=== PATIENT | male | born 1940 | race Hispanic/Latino ===

== ENCOUNTER 2018-06-18 08:04 | Emergency (ER) | payer MEDICARE, OTHER ==
[2018-06-18] MEDS ORDERED: LIDOCAINE VISCOUS 2% PO ONE (09:37)
--- NOTE | 2018-06-18 09:42 | Emergency Department Report ---
ED ENT HPI - General Chief complaint: Sore Throat Stated complaint: SORE THROAT Source: patient Mode of arrival: Ambulatory Limitations: No Limitations - History of Present Illness Initial comments: This is a 78-year-old male who presents with sore throat and difficulty swallowing for 2 day. Has medical history of diabetes type 2 and hypertension. Patient states he was rushing to an appointment at the [facility] yesterday morning and ate some oatmeal which he thinks burned throat. Patient states he is having difficulty swallowing since. He was unable to eat dinner last night and only able to take a few bites of oatmeal this morning. Patient denies past medical history of difficulty swallowing. Patient denies fever/chills, cough, shortness of breath, hoarseness, drooling, and chest pain. MD complaint: sore throat, difficulty swallowing Onset/Timin -: days(s) Location: throat Severity: moderate Severity scale (0 -10): 5 Quality: aching Consistency: intermittent Worsens with: swallowing Associated Symptoms: pain with swallowing, sore throat - Related Data Home Medications Medication Instructions Recorded Confirmed Last Taken Aspirin [Baby Aspirin] 162 mg PO QDAY 03/23/14 03/23/14 03/23/14 Clopidogrel Bisulfate [Plavix] 75 mg PO QDAY 03/23/14 03/23/14 03/23/14 Metformin HCl [Glucophage] 1,000 mg PO BID 03/23/14 03/23/14 03/23/14 Metoprolol [Lopressor] 75 mg PO Q8HR 03/23/14 03/23/14 03/23/14 oxyCODONE /ACETAMINOPHEN [Percocet 2 tab PO Q4HR PRN 03/23/14 03/23/14 Unknown 5/325] Previous Rx's Medication Instructions Recorded Last Taken Type oxyCODONE /ACETAMINOPHEN [Percocet 1 tab PO Q6HR PRN #14 tablet 03/23/14 Unknown Rx 5/325 mg] Allergies Allergy/AdvReac Type Severity Reaction Status Date / Time No Known Allergies Allergy Verified 06/18/18 08:24 ED Dental HPI - General Chief complaint: Sore Throat Stated complaint: SORE THROAT Source: patient Mode of arrival: Ambulatory Limitations: No Limitations - Related Data Home Medications Medication Instructions Recorded Confirmed Last Taken Aspirin [Baby Aspirin] 162 mg PO QDAY 03/23/14 03/23/14 03/23/14 Clopidogrel Bisulfate [Plavix] 75 mg PO QDAY 03/23/14 03/23/14 03/23/14 Metformin HCl [Glucophage] 1,000 mg PO BID 03/23/14 03/23/14 03/23/14 Metoprolol [Lopressor] 75 mg PO Q8HR 03/23/14 03/23/14 03/23/14 oxyCODONE /ACETAMINOPHEN [Percocet 2 tab PO Q4HR PRN 03/23/14 03/23/14 Unknown 5/325] Previous Rx's Medication Instructions Recorded Last Taken Type oxyCODONE /ACETAMINOPHEN [Percocet 1 tab PO Q6HR PRN #14 tablet 03/23/14 Unknown Rx 5/325 mg] Allergies Allergy/AdvReac Type Severity Reaction Status Date / Time No Known Allergies Allergy Verified 06/18/18 08:24 ED Review of Systems ROS: Stated complaint: SORE THROAT Other details as noted in HPI Constitutional: denies: chills, fever ENT: denies: ear pain, throat pain Respiratory: denies: cough, shortness of breath, wheezing Cardiovascular: denies: chest pain, palpitations Gastrointestinal: denies: abdominal pain, nausea, diarrhea Neurological: denies: headache, weakness, paresthesias Psychiatric: denies: anxiety, depression ED Past Medical Hx - Past Medical History Hx Hypertension: Yes Hx Diabetes: Yes - Surgical History Additional Surgical History: CABG 01/2014 - Social History Smoking Status: Never Smoker Substance Use Type: None - Medications Home Medications: Home Medications Medication Instructions Recorded Confirmed Last Taken Type Aspirin [Baby Aspirin] 162 mg PO QDAY 03/23/14 03/23/14 03/23/14 History Clopidogrel Bisulfate [Plavix] 75 mg PO QDAY 03/23/14 03/23/14 03/23/14 History Metformin HCl [Glucophage] 1,000 mg PO BID 03/23/14 03/23/14 03/23/14 History Metoprolol [Lopressor] 75 mg PO Q8HR 03/23/14 03/23/14 03/23/14 History oxyCODONE /ACETAMINOPHEN [Percocet 1 tab PO Q6HR PRN #14 tablet 03/23/14 Unknown Rx 5/325 mg] oxyCODONE /ACETAMINOPHEN [Percocet 2 tab PO Q4HR PRN 03/23/14 03/23/14 Unknown History 5/325] ED Physical Exam - General Limitations: No Limitations General appearance: alert, in no apparent distress - ENT ENT exam: Present: mucous membranes moist. Absent: normal orophraynx ( posterior phraynx erythema, uvila midline) - Neck Neck exam: Present: normal inspection - Respiratory Respiratory exam: Present: normal lung sounds bilaterally. Absent: respiratory distress - Cardiovascular Cardiovascular Exam: Present: regular rate, normal rhythm. Absent: systolic murmur, diastolic murmur, rubs, gallop - GI/Abdominal GI/Abdominal exam: Present: soft, normal bowel sounds - Neurological Exam Neurological exam: Present: alert, oriented X3 - Psychiatric Psychiatric exam: Present: normal affect, normal mood - Skin Skin exam: Present: warm, dry, intact, normal color. Absent: rash ED Course Vital Signs 06/18/18 08:24 Temperature 98.3 F Pulse Rate 87 Respiratory 18 Rate Blood Pressure 171/75 O2 Sat by Pulse 98 Oximetry ED Medical Decision Making - Medical Decision Making Patient was examined by me. Vitals are stable and patient is in no acute distress. Obtained x-ray of neck soft tissues. X-rays dictated by radiologist and report reviewed by myself. Unremarkable soft tissues of the neck. Advanced cervical spondylosis with prominent anterior spurring. Patient informed of results. Referral to ENT and GI for barium swallow or laryngoscopy. Plan discussed with patient to discharge home and treat outpatient. He agrees with ER plan. Patient discharged home in stable condition. Follow up with PCP in 2-3 days. Critical care attestation.: If time is entered above; I have spent that time in minutes in the direct care of this critically ill patient, excluding procedure time. ED Disposition Clinical Impression: Dysphagia Qualifiers: Dysphagia type: unspecified Qualified Code(s): R13.10 - Dysphagia, unspecified Disposition: DC-01 TO HOME OR SELFCARE Is pt being admited?: No Does the pt Need Aspirin: No Condition: Stable Instructions: Chronic Dysphagia (ED) Additional Instructions: Follow up with Gastroenterology for further evaluation. Referrals: JEFF BARAJAS [Other] - 3-5 Days [facility] [Provider Group] - 3-5 Days Time of Disposition: 12:10 Print Language: ROMANIAN
--- NOTE | 2018-06-18 11:21 | XRay Report ---
AP AND LATERAL SOFT TISSUES OF THE NECK: History: Dysphagia. The contour of the upper airway appears within normal limits. The epiglottis is not enlarged. No prevertebral soft tissue swelling is apparent. No mass density or foreign body is evident. Moderate to severe multilevel degenerative disc disease is noted in the cervical spine. Prominent anterior bridging osteophytes are noted at C3-4 and C5-6. IMPRESSION: Unremarkable soft tissues of the neck. Advanced cervical spondylosis with prominent anterior spurring.
[2018-06-18 12:13] VITALS: BP 160/72
== END 2018-06-18 12:16 | disposition home or self-care (01) ==
LOC: ED 08:04
DX: R13.10 Dysphagia, unspecified (principal); E11.9 Type 2 diabetes mellitus without complications; I10 Essential (primary) hypertension; Z95.1 Presence of aortocoronary bypass graft; Z79.899 Other long term (current) drug therapy
CPT/HCPCS: 70360; 99283

== ENCOUNTER 2021-01-22 10:23 | Emergency (ER) | payer MEDICARE, OTHER ==
[2021-01-22] MEDS ORDERED: SODIUM CHLORIDE 0.9% 1000 ML 1,000 ML IV ONE (10:46)
--- NOTE | 2021-01-22 10:51 | Event Note ---
ED Screening Note Date of service: 01/22/21 Time: 10:47 ED Screening Note: This initial assessment/diagnostic orders/clinical plan/treatment(s) is/are subject to change based on patients health status, clinical progression and re- assessment by fellow clinical providers in the ED. Further treatment and workup at subsequent clinical providers discretion. Patient/guardian urged not to elope from the ED as their condition may be serious if not clinically assessed and managed. Initial orders include: 80-year-old male alert and oriented x3 skin pale. past medical history of diabetes brought in by EMS with complaint of bilateral leg pain and cramps. He denies chest pain no shortness of breath, no fever no chills no nausea no vomiting no diarrhea. He does have a dry cough which he states is from ingesting dust in his home. His lower extremities no swelling noted bilaterally skin intact. Blood pressure 84/48 heart rate 82 respirations 22 oxygen saturation 99 on room air.
--- NOTE | 2021-01-22 11:49 | Emergency Department Report ---
HPI - General Chief Complaint: Extremity Injury, Lower Time Seen by Provider: 01/22/21 11:38 - HPI HPI: This is an 80-year-old male who presents to the emergency department with complaint of bilateral lower extremity cramping that started about 4 AM. The patient also presents with some borderline hypotension. He denies any headache, chest pain, vision change, shortness of breath, nausea, vomiting, abdominal pain. There is no lower extremity swelling, rash, skin color change or lesions. Patient says that he was able to ambulate with "baby steps" while the cramping was going on. The cramping occurred throughout the entire bilateral lower extremities and then he says that it moved to his arms. Currently the patient just complains of some cramping pain in the right thigh. He has a past medical history of hypertension, insulin-dependent diabetes, coronary artery disease with CABG x5 in 2013. The patient says that he drank some water, tea, and had a breakfast of oatmeal this morning. Otherwise he did not take anything for his symptoms prior to presentation. His primary care physician is a Dr. Almanzar and his special weapons unit officer is through the [facility] [address]. No recent travel or sick contacts at home. ED Past Medical Hx - Past Medical History Previous Medical History?: Yes Hx Hypertension: Yes Hx Diabetes: Yes - Surgical History Past Surgical History?: Yes Additional Surgical History: CABG 01/2014 - Social History Smoking Status: Never Smoker Substance Use Type: Prescribed - Medications Home Medications: Home Medications Medication Instructions Recorded Confirmed Last Taken Type Aspirin [Baby Aspirin] 162 mg PO QDAY 03/23/14 03/23/14 03/23/14 History Clopidogrel Bisulfate [Plavix] 75 mg PO QDAY 03/23/14 03/23/14 03/23/14 History Metformin HCl [Glucophage] 1,000 mg PO BID 03/23/14 03/23/14 03/23/14 History Metoprolol [Lopressor] 75 mg PO Q8HR 03/23/14 03/23/14 03/23/14 History oxyCODONE /ACETAMINOPHEN [Percocet 1 tab PO Q6HR PRN #14 tablet 03/23/14 Unknown Rx 5/325 mg] oxyCODONE /ACETAMINOPHEN [Percocet 2 tab PO Q4HR PRN 03/23/14 03/23/14 Unknown History 5/325] ED Review of Systems ROS: Stated complaint: LEG CRAMPS/PAIN Other details as noted in HPI Comment: All other systems reviewed and negative Constitutional: denies: chills, fever Eyes: denies: eye pain, vision change ENT: denies: ear pain, throat pain Respiratory: denies: cough, shortness of breath Cardiovascular: denies: chest pain, palpitations Gastrointestinal: denies: abdominal pain, vomiting Genitourinary: denies: dysuria, discharge Musculoskeletal: myalgia. denies: back pain, joint swelling Skin: denies: rash, lesions Neurological: denies: headache, numbness, paresthesias Physical Exam - Physical Exam Vital Signs: Vital Signs 01/22/21 10:37 Temperature 97.5 F L Pulse Rate 82 Respiratory 22 Rate Blood Pressure 84/48 O2 Sat by Pulse 99 Oximetry Physical Exam: GENERAL: The patient is well-developed well-nourished. HENT: Normocephalic. Atraumatic. Patient has moist mucous membranes. EYES: Extraocular motions are intact. NECK: Supple. Trachea is midline. CHEST/LUNGS: Clear to auscultation. There is no respiratory distress noted. HEART/CARDIOVASCULAR: Regular. There is no tachycardia. There is no murmur. ABDOMEN: Abdomen is soft, nontender. Patient has normal bowel sounds. SKIN: Skin is warm and dry. NEURO: The patient is awake, alert, and oriented. The patient is cooperative. The patient has no focal neurologic deficits. Normal speech. Cranial nerves II through XII grossly intact. MUSCULOSKELETAL: There is no tenderness or deformity. There is no limitation range of motion. nce of acute injury. ED Course Vital Signs 01/22/21 10:37 Temperature 97.5 F L Pulse Rate 82 Respiratory 22 Rate Blood Pressure 84/48 O2 Sat by Pulse 99 Oximetry ED Medical Decision Making - Lab Data Result diagrams: 01/22/21 11:51 01/22/21 13:36 - Medical Decision Making This patient presents to the emergency department with a complaint of bilateral leg cramping and occasionally cramping in his arms. His initial blood pressure was concerning for borderline hypotension. The patient was started on IV fluid resuscitation and immediately started to have some improvement in the cramping. Patient's labs came back showing hyponatremia with a sodium of 127 and some renal insufficiency with a GFR of about 35. After the patient had a liter of normal saline I rechecked his metabolic panel and there is improvement. The sodium came up to 130 and the GFR is now at about 45. Urinalysis did not show any proteinuria or ketones or urinary tract infection. Patient's blood pressure improved shortly after presentation and remained within normal limits for the rest of his ED course. He has not had any return of the leg cramping, even after ambulation around the emergency department. For all these reasons the patient appears safe for discharge home at this time. He has good outpatient follow-up with a primary care physician through the [facility] [address]. We discussed the need for follow-up with nephrology, avoiding NSAIDs. We discussed adding a little bit of salt to his food and continuing with oral rehydration. The patient will return to the emergency department with any worsening of his symptoms or with any acute distress. Critical Care Time: No Critical care attestation.: If time is entered above; I have spent that time in minutes in the direct care of this critically ill patient, excluding procedure time. ED Disposition Clinical Impression: Muscle cramping, Hyponatremia, Renal insufficiency, Hyperglycemia Disposition: TO HOME OR SELFCARE Is pt being admited?: No Condition: Stable Instructions: Acute Kidney Injury, Adult, Muscle Cramps and Spasms, Hyperglycemia Additional Instructions: This morning your labs showed low sodium levels, known as hyponatremia, as well as some decreased kidney function. After receiving IV fluid, both the sodium levels and the decreased kidney function have improved. They have not completely resolved yet. Please follow-up with your primary care physician in the next few days. I have given you a referral for a local blurb writer (kidney doctor), Dr. Lemus. Due to the decreased kidney function, please avoid any NSAIDs such as Aleve, naproxen, ibuprofen, Advil. Please take all medications as previously prescribed. Try to stay away from foods that are high in sugar, carbohydrates and starches. Keep a blood sugar log. Return to the emergency department with any worsening of your symptoms, new or concerning symptoms not addressed during this current emergency department visit, or with any acute distress. Referrals: PRIMARY MD LEONILA [Primary Care Provider] - 2-3 Days ELKE LEMUS MD [Staff Physician] - 2-3 Days Time of Disposition: 16:03
[2021-01-22 12:06] LABS: Hematocrit 35.3 % (35.5-45.6); Hemoglobin 11.2 gm/dl (11.8-15.2); Mean Corpuscular HGB Conc 32 % (32-34); Mean Corpuscular Volume 72 fl (84-94); Platelet Count 126 K/mm3 (140-440); Red Blood Count 4.94 M/mm3 (3.65-5.03); Red Cell Distribution Width 17.5 % (13.2-15.2)
[2021-01-22 12:29] LABS: Albumin 4.2 g/dL (3.9-5)
[2021-01-22 14:20] LABS: Calcium 8.5 mg/dL (8.4-10.2)
[2021-01-22] MEDS ORDERED: SODIUM CHLORIDE 0.9% 500 ML 500 ML IV ONE (14:47)
[2021-01-22 14:56] LABS: Bilirubin,Urine NEG (Negative); Blood,Urine NEG (Negative); Color,Urine Straw (Yellow); Protein,Urine <15 mg/dL mg/dL (Negative); Urobilinogen,Urine < 2.0 mg/dL (<2.0); WBC,Urine < 1.0 /HPF (0.0-6.0)
[2021-01-22 16:38] VITALS: BP 142/79
== END 2021-01-22 16:39 | disposition home or self-care (01) ==
LOC: ED 10:23
DX: E11.65 Type 2 diabetes mellitus with hyperglycemia (principal); N28.9 Disorder of kidney and ureter, unspecified; E87.1 Hypo-osmolality and hyponatremia; M79.604 Pain in right leg; M79.605 Pain in left leg; I10 Essential (primary) hypertension; Z98.890 Other specified postprocedural states; Z79.899 Other long term (current) drug therapy
CPT/HCPCS: 36415; 80048; 80053; 81001; 82550; 82962; 83735; 85027; 96360; 99284; J7030; J7040